=== PATIENT | male | born 1985 | race Caucasian/White ===

== ENCOUNTER 2024-02-02 04:48 | Emergency (ER) | payer SELFPAY ==
[~2024-02-02] VITALS: Ht 167.6 cm; Wt 100.0 kg
[~2024-02-02 04:48] MED LIST: CILOXAN .3% EY2.5 ML OD; NORCO 325 MG-51 TAB PO
[2024-02-02 04:55] VITALS: TEMP 98.3
[2024-02-02] MEDS ORDERED: Ondansetron 4 MG/2 ML VIAL IV ONE (05:15)
[2024-02-02] MEDS ORDERED: NS 1,000 ML IV ONE ×2 (05:15→06:00)
[2024-02-02] MEDS ORDERED: Ketorolac 30 MG/ML VIAL IV ONE (05:15)
[2024-02-02 05:17] LABS: HEMOGLOBIN 12.8 g/dl (13.5-18.0); MEAN CELL VOLUME 84 fl (80.0-100.0); MEAN CORPUSCULAR HEMOGLOBIN 30 pg (27-31); MEAN CORPUSCULAR HGB CONC 36 g/dl (33.0-37.0); MEAN PLATELET VOLUME 9.7 fl (7.4-10.4); PLATELET COUNT 254 K/mm3 (130-400); RED BLOOD COUNT 4.28 M/mm3 (4.20-5.60); REDCELL DISTRIBUTION WIDTH-CV 13.1 % (11.5-14.5)
[2024-02-02 05:31] LABS: COLLECTION METHOD CLEAN CATCH
[2024-02-02 05:33] LABS: BILIRUBIN,TOTAL 0.4 mg/dL (0.2-1.2); CREATININE, serum 2.02 mg/dL (0.72-1.25); POTASSIUM 4.5 mEq/L (3.5-4.5); TOTAL PROTEIN 7.6 g/dl (6.2-8.1)
[2024-02-02 05:37] LABS: HEMATOCRIT 36.1 % (42.0-52.0)
[2024-02-02 05:38] LABS: URINE BLOOD 3+ (NEGATIVE); URINE NITRATE NEGATIVE (NEGATIVE)
[2024-02-02 05:39] LABS: URINE APPEARANCE CLEAR (CLEAR/HAZY); URINE COLOR YELLOW (YELLOW); URINE GLUCOSE 1+ (NEGATIVE); URINE KETONE NEGATIVE (NEGATIVE); URINE PROTEIN(semi-quant) 2+ (BEGATIVE); URINE UROBILINOGEN 0.2 E.U/dL (0.2-1.0)
[2024-02-02] MEDS ORDERED: Iohexol 300 - 100 ML VIAL IV ONE (05:56)
[2024-02-02] MEDS ORDERED: NS 50 ML IV ONE (05:57)
[2024-02-02 06:10] LABS: LYMPHOCYTE 14 % (20.0-51.0); METAMYELOCYTE 1 % (0-0); NEUTROPHILS 84 % (42.0-75.2)
[2024-02-02 06:13] LABS: PLATELET ESTIMATE NORMAL (NORMAL); STOMATOCYTE 1+
[2024-02-02] MEDS ORDERED: FLOMAX 0.40.4 MG/CAP PO (06:51)
[2024-02-02] MEDS ORDERED: NORCO 325 MG-51 TAB PO (06:51)
[2024-02-02 07:12] VITALS: BP 147/103; PULSE 100
== END 2024-02-02 07:12 | disposition home or self-care (01) ==
LOC: COL.ER 04:48
PROVIDERS: Family Medicine
DX: N20.1 Calculus of ureter (principal); N17.9 Acute kidney failure, unspecified; R73.9 Hyperglycemia, unspecified
CPT/HCPCS: J1885; J2405; J7030; Q9967